=== PATIENT | male | born 2000 | race Caucasian/White ===

== ENCOUNTER 2022-11-20 13:18 | Emergency (ER) | payer SELFPAY ==
[2022-11-20 13:21] VITALS: BP 123/86; PULSE 52; RESP 16; TEMP 36.6; O2SAT 97; BMI 25.7
--- NOTE | 2022-11-20 13:26 | PC.NURSE ---
Pt states chest pain for a week. Worse with movement but states the pain is always there. States no known injury. NO cardiac history. States has SOB at times when he lays a certain way in bed. No SOB at time of assessment.
--- NOTE | 2022-11-20 13:38 | XR_ITS ---
[place] [id number] Patient Name: ROSETTE JACINTO MRN: [id number] date: 2000 Sex: M Assigned Patient Location: ER Current Patient Location: ED.MAIN Accession/Order Number: [id number] Exam Date: 11/20/2022 14:20 Report Date: 11/20/2022 14:54 At the request of: MARK MITCHELL Procedure: XR chest 2V EXAMINATION: XR chest 2V 11/20/2022 11:53 AM PDT, [id number]. HISTORY: CP TECHNIQUE: 2 views of the chest were acquired. COMPARISONS: Chest x-ray 11/16/2021. FINDINGS: Lines/tubes/other: None. Heart and mediastinum: Within normal limits. Bones: No acute osseous abnormality. Lungs: Clear. Pleura: No pleural effusion or pneumothorax. Other: No pneumoperitoneum. XR/XR chest 2V IMPRESSION: Normal radiographs of the chest. Electronically authenticated by: LISA GRAHAM Date: 11/20/2022 14:54
--- NOTE | 2022-11-20 13:39 | ED_ITS ---
Documented by User: Liliana Pineda 11/20/22 15:17 HPI - Chest Pain General Chief Complaint: Chest Pain Stated Complaint: CHEST PAIN Time Seen by Provider: 11/20/22 13:35 Source: patient Mode of arrival: walk-in Limitations: no limitations History of Present Illness HPI narrative: 22 year old male presents to the ED for chest pain. Onset was one week ago. It is on the left side of his chest and radiates under his left arm to his side. The pain is worse with movement, palpation, inspiration. Denies fever, chills, cough, dizziness, injury. States he feels short of breath due to the pain. MD complaint: Reports chest pain and chest discomfort Related Data Previous Rx's Medication Instructions Recorded naproxen 500 mg tablet (Naprosyn) 500 mg PO Q12H PRN pain #14 tabs 11/20/22 Allergies Allergy/AdvReac Type Severity Reaction Status Date / Time cephalexin Allergy Severe Difficulty Verified 11/20/22 13:23 Breathing Review of Systems ROS Constitutional Denies: fever or chills Ears, nose, mouth, and throat Denies: throat pain or neck pain Cardiovascular Reports: chest pain; Denies: palpitations, edema, lightheadedness or shortness of breath with exertion Respiratory Reports: shortness of breath; Denies: cough or wheezing Gastrointestinal Denies: abdominal pain Musculoskeletal Denies: back pain Integumentary/Breast Denies: rash Neurological Denies: headache or dizziness Exam Constitutional Vital Signs, click to edit/add: Last Vital Signs Temp 97.8 F 11/20/22 13:21 Pulse 52 L 11/20/22 13:21 Resp 16 11/20/22 13:21 BP 123/86 11/20/22 13:21 Pulse Ox 97 11/20/22 13:21 O2 Del Method Room Air 11/20/22 13:21 Common normals: no apparent distress and oriented x3 General appearance: cooperative; not ill appearing Eye Common normals: conjunctivae normal and no scleral icterus Neck & C-Spine Common normals: supple Chest Chest: symmetrical chest wall rise and tenderness (Left anterior and lateral) Respiratory Common normals: normal respiratory effort Effort & inspection: symmetric chest movement Auscultation: clear to auscultation bilaterally Cardio Common normals: no JVD, regular rate and regular rhythm Back & Pelvis Common normals: thoracic and lumbar spine normal to inspection Neuro Common normals: oriented x3 Sensorium/orientation: awake and alert Course Vital Signs Vital signs: Vital Signs Temperature 97.8 F 11/20/22 13:21 Pulse Rate 52 L 11/20/22 13:21 Respiratory Rate 16 11/20/22 13:21 Blood Pressure 123/86 11/20/22 13:21 Pulse Oximetry 97 11/20/22 13:21 Oxygen Delivery Method Room Air 11/20/22 13:21 Temperature 97.8 F 11/20/22 13:21 Pulse Rate 52 L 11/20/22 13:21 Respiratory Rate 16 11/20/22 13:21 Blood Pressure 123/86 11/20/22 13:21 Pulse Oximetry 97 11/20/22 13:21 Oxygen Delivery Method Room Air 11/20/22 13:21 MDM - Chest Pain MDM Narrative Medical decision making narrative: Chest x-ray was negative for acute findings. EKG was unremarkable. The patient's pain is likely musculoskeletal due to the presentation. A prescription was provided for naprosyn. Follow up with pcp for a recheck, further evaluation and treatment. Return precautions were discussed. Medical Records Data Attestation: I reviewed the patient's medical records. Imaging Data Chest x-ray: Radiologist's impression: Procedure: XR chest 2V EXAMINATION: XR chest 2V 11/20/2022 11:53 AM PDT, [id number]. HISTORY: CP TECHNIQUE: 2 views of the chest were acquired. COMPARISONS: Chest x-ray 11/16/2021. FINDINGS: Lines/tubes/other: None. Heart and mediastinum: Within normal limits. Bones: No acute osseous abnormality. Lungs: Clear. Pleura: No pleural effusion or pneumothorax. Other: No pneumoperitoneum. XR/XR chest 2V IMPRESSION: Normal radiographs of the chest. Electronically authenticated by: LISA GRAHAM Date: 11/20/2022 14:54 ECG Data Attestation: ?I have reviewed the pertinent ECG results. (EKG was reviewed by the attending physician. It showed sinus rhythm at a rate of 50 bpm. NE interval 122 ms. QTc 443 ms.) Interpretation: Measurements Intervals [place] Rate: 50 P: 56 NE: 122 QRS: 73 QRSD: 98 T: 52 QT: 470 QTc: 443 Interpretive Statements 1100 Sinus rhythm 1970 with occasional ectopic premature complexes 9140 abnormal rhythm ECG No previous ECG available for comparison Discharge Plan Discharge Chief Complaint: Chest Pain Clinical Impression: Atypical chest pain Patient Disposition: Home, Self-Care Time of Disposition Decision: 15:08 Condition: Good Mode of Transportation: Private Vehicle Prescriptions / Home Meds: New naproxen [Naprosyn] 500 mg tablet 500 mg PO Q12H PRN (Reason: pain) Qty: 14 0RF Instructions: Chest Pain (ED), Chest Wall Pain (ED) Stand Alone Forms: Portal Instructions Referrals: Physician,Non-Staff, [Primary Care Provider] - 1 week Discharge Date/Time: 11/20/22 15:15 Documented by User: Jennifer Miranda MD 11/20/22 17:01 HPI - Chest Pain General Chief Complaint: Chest Pain Stated Complaint: CHEST PAIN Time Seen by Provider: 11/20/22 13:35 Related Data Previous Rx's Medication Instructions Recorded naproxen 500 mg tablet (Naprosyn) 500 mg PO Q12H PRN pain #14 tabs 11/20/22 Allergies Allergy/AdvReac Type Severity Reaction Status Date / Time cephalexin Allergy Severe Difficulty Verified 11/20/22 13:23 Breathing Exam Constitutional Vital Signs, click to edit/add: Last Vital Signs Temp 97.8 F 11/20/22 13:21 Pulse 52 L 11/20/22 13:21 Resp 16 11/20/22 13:21 BP 123/86 11/20/22 13:21 Pulse Ox 97 11/20/22 13:21 O2 Del Method Room Air 11/20/22 13:21 Course Vital Signs Vital signs: Vital Signs Temperature 97.8 F 11/20/22 13:21 Pulse Rate 52 L 11/20/22 13:21 Respiratory Rate 16 11/20/22 13:21 Blood Pressure 123/86 11/20/22 13:21 Pulse Oximetry 97 11/20/22 13:21 Oxygen Delivery Method Room Air 11/20/22 13:21 Temperature 97.8 F 11/20/22 13:21 Pulse Rate 52 L 11/20/22 13:21 Respiratory Rate 16 11/20/22 13:21 Blood Pressure 123/86 11/20/22 13:21 Pulse Oximetry 97 11/20/22 13:21 Oxygen Delivery Method Room Air 11/20/22 13:21 MDM - Chest Pain MDM Narrative Medical decision making narrative: Chest x-ray was negative for acute findings. EKG was unremarkable. The patient's pain is likely musculoskeletal due to the presentation. A prescription was provided for naprosyn. Follow up with pcp for a recheck, further evaluation and treatment. Return precautions were discussed. Attending physician attestation I have reviewed the mid-level documentation, agree with the documentation, medical decision making and treatment plan as outlined by the mid-level provider. Discharge Plan Discharge Chief Complaint: Chest Pain Clinical Impression: Atypical chest pain Patient Disposition: Home, Self-Care Time of Disposition Decision: 15:08 Condition: Good Mode of Transportation: Private Vehicle Prescriptions / Home Meds: New naproxen [Naprosyn] 500 mg tablet 500 mg PO Q12H PRN (Reason: pain) Qty: 14 0RF Instructions: Chest Pain (ED), Chest Wall Pain (ED) Stand Alone Forms: Portal Instructions Referrals: Physician,Non-Staff, MD [Primary Care Provider] - 1 week Discharge Date/Time: 11/20/22 15:15
--- NOTE | 2022-11-20 13:43 | ECG_ITS ---
The [facility] Test Date: 2022-11-20 Pat Name: ROSETTE JACINTO Department: Room: - Gender: Male Sales Manager: : 2000 Requested By: Order Number: [id number] Reading MD: MALIK GONZALES Measurements Intervals [place] Rate: 50 P: 56 [place]: 122 QRS: 73 QRSD: 98 T: 52 QT: 470 QTc: 443 Interpretive Statements 1100 Sinus bradycardia 1969 with occasional ectopic premature complexes 9140 abnormal rhythm ECG No previous ECG available for comparison Electronically Signed On 11-21-2022 7:15:44 EDT by MALIK GONZALES
[2022-11-20] MEDS: NAPROXEN 250 MG TABLET 500 MG PO (14:43)
== END 2022-11-20 15:15 | disposition home or self-care (01) ==
PROVIDERS: Emergency Provider Emergency Medicine
DX: R07.89 Other chest pain (principal)
CPT/HCPCS: 71046; 93005; 99284

== ENCOUNTER 2023-02-18 09:57 | Emergency (ER) | payer SELFPAY ==
[2023-02-18 10:03] VITALS: BP 98/61; PULSE 69; RESP 16; TEMP 36.8; O2SAT 97; BMI 24.2
--- NOTE | 2023-02-18 10:10 | XR_ITS ---
The [address] [address] Patient Name: ROSETTE JACINTO MRN: [id number] date: 2000 Sex: M Assigned Patient Location: ER Current Patient Location: ED.MAIN Accession/Order Number: [id number] Exam Date: 02/18/2023 10:18 Report Date: 02/18/2023 11:08 At the request of: BANDAR CASTRO Procedure: XR ribs LT min 3V w CXR1V EXAM: XR ribs LT min 3V w CXR1V INDICATION: fall. COMPARISON: None. TECHNIQUE: Left rib series with frontal view of the chest FINDINGS: No acute displaced rib fracture identified. No osseous lytic or blastic lesion. Normal cardiomediastinal contours. Clear lungs. No pleural effusion or pneumothorax. XR/XR ribs LT min 3V w CXR1V IMPRESSION: 1. Normal left rib series. 2. No acute cardiopulmonary process. Electronically authenticated by: KATHLEEN CONROY Date: 02/18/2023 11:08
--- NOTE | 2023-02-18 10:16 | ED.GENADUL1 ---
HPI - General Adult General Chief complaint: Chest Pain Stated complaint: FALL/UPPER EXTREMITY INJURY Time Seen by Provider: 02/18/23 10:10 Source: family History of Present Illness HPI narrative: Patient is a 22-year-old male who is presenting to the Emergency Room with chief complaint of left-sided rib pain after patient had tripped and fallen and hit the left side of his ribs against a metal object. X-rays were ordered for patient's left side of his ribs and chest x-ray. I heard the patient information from Franklin ZAMORA, triage nurse. I was never able to see the patient secondary to urine volume in critical patients. Patient left without being seen or evaluated by myself. Related Data Previous Rx's Medication Instructions Recorded naproxen 500 mg tablet (Naprosyn) 500 mg PO Q12H PRN pain #14 tabs 11/20/22 Allergies Allergy/AdvReac Type Severity Reaction Status Date / Time cephalexin Allergy Severe Difficulty Verified 11/20/22 13:23 Breathing PFSH PFSH Social History Smoking status: Heavy tobacco smoker Exam Constitutional Vital Signs, click to edit/add: Last Vital Signs Temp 98.2 F 02/18/23 10:03 Pulse 69 02/18/23 10:03 Resp 16 02/18/23 10:03 BP 98/61 02/18/23 10:03 Pulse Ox 97 02/18/23 10:03 O2 Del Method Room Air 02/18/23 10:03 Course Vital Signs Vital signs: Vital Signs Temperature 98.2 F 02/18/23 10:03 Pulse Rate 69 02/18/23 10:03 Respiratory Rate 16 02/18/23 10:03 Blood Pressure 98/61 02/18/23 10:03 Pulse Oximetry 97 02/18/23 10:03 Oxygen Delivery Method Room Air 02/18/23 10:03 Temperature 98.2 F 02/18/23 10:03 Pulse Rate 69 02/18/23 10:03 Respiratory Rate 16 02/18/23 10:03 Blood Pressure 98/61 02/18/23 10:03 Pulse Oximetry 97 02/18/23 10:03 Oxygen Delivery Method Room Air 02/18/23 10:03 Discharge Plan Discharge Patient Disposition: Left Without Being Seen Discharge Date/Time: 02/18/23 11:30
[2023-02-18] MEDS: IBUPROFEN 400 MG TABLET 800 MG PO (10:29)
--- NOTE | 2023-02-18 18:06 | RESP.RT ---
done per nursing
== END 2023-02-18 11:30 | disposition left against medical advice (07) ==
PROVIDERS: Emergency Provider Emergency Medicine
DX: R07.81 Pleurodynia (principal); Z53.21 Procedure and treatment not carried out due to patient leaving prior to being seen by health care provider; F17.210 Nicotine dependence, cigarettes, uncomplicated
CPT/HCPCS: 71101; 94667; 99283

== ENCOUNTER 2023-08-21 11:43 | Emergency (ER) | payer SELFPAY ==
[2023-08-21 11:54] VITALS: BP 110/66; PULSE 66; TEMP 36.7; O2SAT 98; BMI 27.3
--- NOTE | 2023-08-21 12:01 | ED.GENADUL1 ---
HPI HPI - General Adult General Chief complaint: Headache Stated complaint: HEADACHE Time Seen by Provider: 08/21/23 11:45 Source: patient Mode of arrival: walk-in Limitations: no limitations History of Present Illness HPI narrative: 23-year-old male presents for headache. He states it started last night and there was no injury or unusual activity. He is pointing to the right temporal area and just below it. No dental pain sore throat fever or cough. No weakness or numbness. He does not get a lot of headaches at all. The pain is continuous and moderate. He took acetaminophen but it did not seem to help. Related Data Previous Rx's ?Medication ?Instructions ?Recorded nqdmhovocu-ionfttstirzks-ilwtqhdf 1 cap PO Q6H PRN pain 5 days #20 08/21/23 50 mg-300 mg-40 mg capsule caps (Fioricet) Allergies Allergy/AdvReac Type Severity Reaction Status Date / Time cephalexin Allergy Severe Difficulty Verified 11/20/22 13:23 Breathing Opioid HPI Opioid Management Most Recent Opioid Data: Last Pain Scale 10 02/18/23 10:29 Review of Systems ROS Narrative A ten point review of systems is negative except as noted above. PFSH PFSH Social History Smoking status: Heavy tobacco smoker Exam Narrative Exam Narrative: Nurses note and vital signs reviewed and patient is not hypoxic. General: The patient appears well and in no apparent distress. Patient is resting comfortably on cart. Skin: Warm, dry, no pallor noted. There is no rash noted. Head: Normocephalic, atraumatic, neck supple, no nuchal rigidity Eye: Normal conjunctiva, no drainage, EOMI. PERRL Ears, Nose, Mouth, and Throat: oral mucosa is moist. Nares patent. Mouth without vesicles. No dental caries noted Cardiovascular: Regular Rate and Rhythm Respiratory: Patient is in no distress, no accessory muscle use, lungs are clear to auscultation, no wheezing, rales or rhonchi Back: non-tender GI: Soft and nontender Musculoskeletal: The patient has no evidence of calf tenderness, no pitting edema, symmetrical pulses noted bilaterally Neurological: Awake and alert, upper and lower extremity strength intact Psychiatric: Cooperative Constitutional Vital Signs, click to edit/add: Last Vital Signs Temp 98.0 F 08/21/23 11:54 Pulse 66 08/21/23 11:54 Resp 18 08/21/23 11:54 BP 110/66 08/21/23 11:54 Pulse Ox 98 08/21/23 11:54 O2 Del Method Room Air 08/21/23 11:54 Course Vital Signs Vital signs: Vital Signs Temperature 98.0 F 08/21/23 11:54 Pulse Rate 66 08/21/23 11:54 Respiratory Rate 18 08/21/23 11:54 Blood Pressure 110/66 08/21/23 11:54 Pulse Oximetry 98 08/21/23 11:54 Oxygen Delivery Method Room Air 08/21/23 11:54 Temperature 98.0 F 08/21/23 11:54 Pulse Rate 66 08/21/23 11:54 Respiratory Rate 18 08/21/23 11:54 Blood Pressure 110/66 08/21/23 11:54 Pulse Oximetry 98 08/21/23 11:54 Oxygen Delivery Method Room Air 08/21/23 11:54 Medical Decision Making MDM Narrative Medical decision making narrative: CT brain is negative. He was given IM Toradol and prescribed Fioricet. Cause of his headache is uncertain. I have no clinical suspicion of meningitis. Treatment diagnosis and follow-up were discussed with the patient. Differential Diagnosis Differential Diagnosis: Intracranial hemorrhage, meningitis, tension headache Imaging Data CT scan - head: Radiologist's impression: ITS Impressions Head CT 08/21/23 12:09 IMPRESSION: 1. Normal examination. Electronically authenticated by: ADRIANA CORTEZ Date: 08/21/2023 12:26 Discharge Plan Discharge Stand Alone Forms: Portal Instructions Chief Complaint: Headache Clinical Impression: Headache Patient Disposition: Home, Self-Care Time of Disposition Decision: 12:36 Condition: Good Mode of Transportation: Private Vehicle Prescriptions / Home Meds: New zdbdsfbets-hvkgtfqnovrwa-vocy [Fioricet] 50-300-40 mg capsule 1 cap PO Q6H PRN (Reason: pain) 5 Days Qty: 20 0RF Print Language: Belarusian Instructions: Acute Headache (ED) Referrals: Physician,Non-Staff, MD [Primary Care Provider] - 1 week
--- NOTE | 2023-08-21 12:09 | CT_ITS ---
The [address] [address] Patient Name: ROSETTE JACINTO MRN: [id number] date: 2000 Sex: M Assigned Patient Location: ER Current Patient Location: ED.MAIN Accession/Order Number: [id number] Exam Date: 08/21/2023 12:06 Report Date: 08/21/2023 12:26 At the request of: LEO CARTAGENA Procedure: CT head/brain wo con EXAMINATION: CT head/brain wo con HISTORY: Right-sided atraumatic headache COMPARISON: No relevant comparison available. TECHNIQUE: Axial CT images were obtained without IV contrast. Dose reduction techniques were achieved by using automated exposure control and/or adjustment of mA and/or kV according to patient size and/or use of iterative reconstruction technique. FINDINGS: BRAIN: No edema, hemorrhage, mass, acute infarction, or inappropriate atrophy. CSF SPACES: No hydrocephalus, subarachnoid hemorrhage, or mass. Appropriate for age. SKULL: No fracture, mass, or other significant visible lesion. SINUSES: No significant mucosal thickening or fluid on the limited views. ORBITS: No appreciable abnormality on the limited views. OTHER: Negative CT/CT head/brain wo con IMPRESSION: 1. Normal examination. Electronically authenticated by: ADRIANA CORTEZ Date: 08/21/2023 12:26
--- OUTSIDE RECORDS SUMMARY | 2023-08-21 12:18 | XMS_ITS | CCD ---
Author Organization [facility] Care Team Providers Care Field Sales Associate Name Role Phone CURLY ., ELIZABETH Admitting Unavailable ELIZABETH HURT Attending Unavailable DR ADRIANA CORTEZ Consulting Unavailable REQUEST, NONE LISTED Primary Care Unavaila ELIZABETH White Consulting Unavailable KELLEN PASCUAL Admitting Unavailable KELLEN PASCUAL Consulting Unavailable KELLEN PASCUAL Attending Unavailable REQUEST, NONE LISTED Primary Care Unavaila ble Unavailable Unavailable Unavailable Allergies Allergy Classification Reported Allergen(s) Allergy Type Date of Onset Reaction(s) Facility (2 sources) Cephalexin; Translations: [Cephalexin] Drug Allergy 5 Difficulty Breathing [facility] Repository Medications Current Medications Medication Drug Class(es) Dates Sig (Normalized) Sig (Original) Albuterol Sulfate (1 source) beta2-Adrenergic Agonist Start: 12-20-2018 Albuterol Sulfate Active 2 PUFF Inhalation As Directed December 20, 2018 8:10am ondansetron 4 mg disintegrating oral tablet (1 source) Serotonin-3 Receptor Antagonist Start: 12-20-2018 Ondansetron Active 4 MG Oral every 6 to 8 hours 10 December 20, 2018 8:34am Problems Active Problems Problem Classification Problem Date Documented Da te Episodic/Chronic Asthma (1 source) Unspecified asthma, uncomplicated; Translations: [UNSPECIFIED ASTHMA UNCOMPLICATED] Onset: 11-17-2021 Chronic Cardiac dysrhythmias (1 source) Palpitations; Translations: [Fluttering sensation of heart] Episodic Disorders of teeth and jaw (1 source) Toothache; Translations: [Dental neglect] Episodic Fluid and electrolyte disorders (1 source) Hypokalemia; Translations: [Diuretic-induced hypokalemia] Episodic Headache; including migraine (1 source) Headache; Translations: [Daily headache] Episodic Nausea and vomiting (2 sources) Nausea and vomiting; Translations: [Vomiting] Episodic Pneumonia (except that caused by tuberculosis or sexually transmitted disease) (1 source) Pneumonia; Translations: [Drug-induced pneumonitis] Episodic Spondylosis; intervertebral disc disorders; other back problems (4 sources) Dorsalgia, unspecified; Translations: [DORSALGIA UNSPECIFIED] Onset: 05-22-2022 Episodic Sprains and strains (1 source) Thoracic back sprain; Translations: [Sprain of thorax] Episodic Substance-related disorders (2 sources) Cannabis abuse; Translations: [Nicotine dependence, other tobacco product, uncomplicated] Onset: 11-17-2021 Chronic Superficial injury; contusion (1 source) Contusion of thumb; Translations: [Contusion of thumb] Episodic Viral infection (2 sources) Acute viral disease; Translations: [Viral disease] Episodic Past or Other Problems Problem Classification Problem Date Documented Da te Episodic/Chronic Nonspecific chest pain (4 sources) Other chest pain; Translations: [Chest pain, unspecified] Onset: 11-16-2021 Episodic Other upper respiratory infections (3 sources) Pharyngitis; Translations: [Upper respiratory infection] Onset: 11-17-2021 Episodic Results Test Name Value Interpretation Reference Range Facil ity XR CHEST 2 Von 11-16-2021 XR CHEST 2 V EXAMINATION: XR CHES T 2 V HISTORY: COUGH ; acute left side chest pain COMPARISON: XR chest 01/13/2021 FINDINGS: LUNGS: No significant pulmonary parenchymal abnormalities. VASCULATURE: No increased pulmonary vasculature. PLEURA: No pneumothorax, effusion, or pleural thickening. CARDIAC: No cardiomegaly or cardiac silhouette abnormality. MEDIASTINUM: No visible mass or adenopathy. BONES: No fracture or visible bone lesion. OTHER: Negative. IMPRESSION: 1. No acute cardiopulmonary process. Stable chest. Electronically authenticated by: ADRIANA CORTEZ Date: 2021-11-16 13:05 Normal [facility] Encounters Encounter Date Encounter Type Care Provider Facility Start: 05-22-2022 End: 05-22-2022 ambulatory KELLEN LAMBERT . Facility:[facility] Start: 11-16-2021 End: 11-16-2021 ambulatory ELIZABETH RAWLS . Facility:[facility] Payers Date Payer Category Payer Unknown [id number] 2000 Unknown [id number] 1961 Private Health Insurance [id number] 1961 Self-pay [id number] Unknown Self Pay [id number] Unknown Self Pay [id number] Social History Date Type Detail Facility Tobacco smoking stat [facility] Unknown if ever smoked [facility] Start: 2000 Sex Assigned At Male [facility] Goals Date Patient Goal Desired Activity /State Assessments No Assessments Information Available Summary Purpose Family History No Family History Records Found Advance Directives No Advanced Directives Records Found Additional Source Comments (unrecognized sect ion and content) No Status Records Found INFORMATION SOURCE (unrecogn ized section and content) DATE CREATED AUTHOR 05/24/2022 [facility] [facility] FOR RECORDS PERTAINING TO PATIENTS WHO ARE OR HAVE BEEN ENROLLED IN A CHEMICAL DEPENDENCY/SUBSTANCEABUSE PROGRAM, SOME INFORMATION MAY BE OMITTED. This clinical summary was aggregated from multiple sources. Caution should be exercised in using it in the provision of clinical care. This summary normalizes information from multiple sources, and as a consequence, information in this document may materially change the coding, format and clinical context of patient data. In addition, data may be omitted in some cases. CLINICAL DECISIONS SHOULD BE BASED ON THE PRIMARY CLINICAL RECORDS. [employer] [facility]. provides no warranty or guarantee of the accuracy or completeness of information in this document.
[2023-08-21] MEDS: KETOROLAC TROMETHAMINE 60 MG/2 ML VIAL IM (12:43)
== END 2023-08-21 12:50 | disposition home or self-care (01) ==
PROVIDERS: Emergency Provider Emergency Medicine
DX: R51.9 Headache, unspecified (principal)
CPT/HCPCS: 70450; 96372; 99284

== ENCOUNTER 2023-09-18 19:50 | Emergency (ER) | payer SELFPAY ==
[2023-09-18 19:52] VITALS: BP 134/82; PULSE 82; TEMP 36.9; O2SAT 97; BMI 24.0
--- OUTSIDE RECORDS SUMMARY | 2023-09-18 20:06 | XMS_ITS | CCD ---
Author Organization [facility] Care Team Providers Care Supervisor [employer] Name Role Phone CURLY ., ELIZABETH Admitting Unavailable CURLY ., ELIZABETH Attending Unavailable DR ADRIANA CORTEZ Consulting Unavailable REQUEST, NONE LISTED Primary Care Unavaila ble CURLY ., ELIZABETH Consulting Unavailable PETRA ., KLELEN Admitting Unavailable PETRA ., KELLEN Consulting Unavailable PETRA ., KELLEN Attending Unavailable REQUEST, NONE LISTED Primary Care Unavaila ble NO PCP, NO PCP Primary Care Unavailable DOTTIE CALVERT Attending Unavailable NO PCP, NO PCP Primary Care Unavailable DOTTIE CALVERT Attending Unavailable DOTTIE CALVERT Attending Unavailable DOTTIE CALVERT Referring Unavailable NO PCP, NO PCP Primary Care Unavailable Unavailable Unavailable Unavailable Allergies Allergy Classification Reported Allergen(s) Allergy Type Date of Onset Reaction(s) Facility (3 sources) Cephalexin; Translations: [Cephalexin] Drug Allergy 5 Difficulty Breathing [facility] Repository Medications Current Medications Medication Drug Class(es) [...] Spondylosis; intervertebral disc disorders; other back problems (6 sources) Dorsalgia, unspecified; Translations: [Backache] Onset: 05-22-2022 Episodic Sprains and strains (2 sources) Thoracic back sprain; Translations: [Strain of muscle, fascia and tendon of lower back, initial encounter] Onset: 08-30-2023 Episodic Substance-related disorders (2 sources) Cannabis abuse; [...] Value Interpretation Reference Range Facil ity XR SPINE LUMBAR 2 OR 3 VWSon 09-04-2023 XR SPINE LUMBAR 2 OR 3 VWS XR SPINE LUMBAR 2 OR 3 VWS CLINICAL INFORMATION: Low back pain TECHNIQUE: XR SPINE LUMBAR 2 OR 3 VWS 2 views of the lumbar spine were obtained. There is no lumbar malalignment or compression. Endplates appear intact. Disc spaces preserved. No fracture. IMPRESSION: Negative exam. Finalized by Kenny Del Toro MD on 09/04/2023 10:33 PM Normal [facility] URN MACROSCOPIC NURon 2023 BILIRUBIN PEDRO Negative Normal NEG [facility] Comment on above: Performed By: #### N UM #### [facility] ([id number]) [address] [place] [address] [place] [address] BLOOD/HGB PEDRO Negative Normal NEG [facility] Comment on above: Performed By: #### N UM #### [facility] ([id number]) [address] [place] [address] [place] [address] GLUCOSE PEDRO Negative Normal NEG [facility] Comment on above: Performed By: #### N UM #### [facility] ([id number]) [address] [place] [address] [place] [address] KETONES PEDRO Negative Normal NEG [facility] Comment on above: Performed By: #### N UM #### [facility] ([id number]) [address] [place] [address] LEUKOCYTE ESTERASE PEDRO Negative Normal NEG [facility] Comment on above: Performed By: #### N UM #### [facility] ([id number]) [address] [place] [address] [place] [address] NITRITE PEDRO Negative Normal NEG [facility] Comment on above: Performed By: #### N UM #### [facility] ([id number]) [address] [place] [address] PH PEDRO 7.0 Normal 5.0-8.5 [facility] Comment on above: Performed By: #### N UM #### [facility] ([id number]) [address] [place] [address] [place] [address] PROTEIN PEDRO Negative Normal NEG [facility] Comment on above: Performed By: #### N UM #### [facility] ([id number]) [address] [place] [address] [place] [address] SPECIFIC GRAVITY PEDRO 1.020 Normal 1.003-1.035 [facility] Comment on above: Performed By: #### N UM #### [facility] ([id number]) [address] [place] [address] [place] [address] UROBILINOGEN PEDRO 0.2 eu/dL Normal <1.1 [facility] Comment on above: Performed By: #### N #### [facility] ([id number]) [address] [place] [address], [place] [address] XR CHEST 2 Von 11-16-2021 XR CHEST [...] by: ADRIANA CORTEZ Date: 2021-11-16 13:05 Normal [facility] Encounters Encounter Date Encounter Type Care Provider Facility Start: 09-04-2023 End: 09-05-2023 Emergency department patient visit DOTTIE CALVERT [facility] Start: 08-30-2023 End: 08-30-2023 Emergency department patient visit NO PCP NO PCP [facility] Start: 05-22-2022 End: 05-22-2022 ambulatory EKLLEN LAMBERT . Facility: Start: 11-16-2021 End: 11-16-2021 ambulatory ELIZABETH RAWLS . Facility: Payers Date Payer Category Payer Unknown [id number] 2.16.84 [id number] 2000 Unknown [id number] [id number] [id number] 1961 Private Health Insurance [id number] 1961 Self-pay [id number] Unknown Self Pay [id number] Unknown Self Pay [id number] Social History Date Type Detail Facility [facility] Start: 2000 Sex Assigned At Male F [facility] Goals Date Patient Goal Desired Activity /State Assessments No Assessments Information Available Summary Purpose Family History No Family History Records FoundNo Family History Records Found Advance Directives No Advanced Directives Records FoundNo Advanced Directives Records Found Additional Source Comments (unrecognized sect ion and content) No Status Records FoundNo Status Records Found INFORMATION SOURCE (unrecogn ized section and content) DATE CREATED AUTHOR 05/24/2022 [facility] DATE CREATED AUTHOR AUTHOR'S ORGANIZ ATION 09/05/2023 [facility] FOR RECORDS PERTAINING TO PATIENTS WHO ARE [...] BE BASED ON THE PRIMARY CLINICAL RECORDS. [employer]. provides no warranty or guarantee of the accuracy or completeness of information in this document.
--- NOTE | 2023-09-18 20:18 | ED.DENTAL1 ---
HPI - Dental/Oral General Chief complaint: Dental/Oral Stated complaint: Dental Pain Time Seen by Provider: 09/18/23 19:52 Source: patient Mode of arrival: walk-in Limitations: no limitations History of Present Illness HPI Narrative: This 23-year-old male presents for evaluation of dental pain. He has multiple decayed and decaying teeth specifically in the left lower mandibular area, today he is complaining about tooth #21, 20 and 19. He has been having pain in his mandible for some period of time but for the past 2 days it has become increasingly painful. He states he does not have insurance so he cannot get into see a dentist. I did suggest several dentist that take juan payments. He has not had any fever. He is not having any pooling of secretions or difficulty breathing or swallowing. He states he has been taking Tylenol and ibuprofen 800 without significant improvement. He did use some Orajel 2 weeks ago. Related Data Allergies Allergy/AdvReac Type Severity Reaction Status Date / Time cephalexin Allergy Severe Difficulty Verified 11/20/22 13:23 Breathing Review of Systems ROS Status of ROS 10 or more systems reviewed and unremarkable except as noted in history and below [facility] Social History Smoking status: Heavy tobacco smoker Exam Narrative Exam Narrative: Vital signs and Nursing Notes reviewed: Patient is afebrile with a normal pulse, normal blood pressure, he is not hypoxic with pulse ox of 97% on room air General: Thin, uncomfortable appearing male, he is holding the left side of his jaw and rocking back and forth on the stretcher, no respiratory distress, speech is clear HEENT: Normocephalic atraumatic, mucous membranes are moist and pink, eyes are clear, normal conjunctiva, there is gingival erythema and induration adjacent to tooth #19, 20 and 21 which are severely decayed with dental caries, no notable periapical abscesses noted. There is no sign of necrotizing gingivitis. There is no swelling of the tongue, uvula or pharyngeal soft tissues. Neck: Supple, no meningeal signs, no anterior or posterior cervical lymphadenopathy Chest: Lungs are clear to auscultation with good air entry, there is no wheezing rhonchi or rales appreciated no accessory muscle use, patient is speaking in complete sentences-no chest wall tenderness to palpation CVS: Regular rate and rhythm S1-S2, no murmurs rubs or gallops, pulses are brisk and equal bilaterally Extremities: Moving all extremities Skin: Normal in appearance without rash,pallor, petechiae or purpura Neuro: No focal deficits Constitutional Vital Signs, click to edit/add: Last Vital Signs Temp 98.5 F 09/18/23 19:52 Pulse 82 09/18/23 19:52 Resp 18 09/18/23 19:52 BP 134/82 09/18/23 19:52 Pulse Ox 97 09/18/23 19:52 O2 Del Method Room Air 09/18/23 19:52 Course Vital Signs Vital signs: Vital Signs Temperature 98.5 F 09/18/23 19:52 Pulse Rate 82 09/18/23 19:52 Respiratory Rate 18 09/18/23 19:52 Blood Pressure 134/82 09/18/23 19:52 Pulse Oximetry 97 09/18/23 19:52 Oxygen Delivery Method Room Air 09/18/23 19:52 Temperature 98.5 F 09/18/23 19:52 Pulse Rate 82 09/18/23 19:52 Respiratory Rate 18 09/18/23 19:52 Blood Pressure 134/82 09/18/23 19:52 Pulse Oximetry 97 09/18/23 19:52 Oxygen Delivery Method Room Air 09/18/23 19:52 MDM - Dental/Oral MDM Narrative Medical decision making narrative: This 23-year-old male with a history of periodontal disease presents for evaluation of left lower jaw pain where he has 3 decayed and decaying teeth #19, 20 and 21. There is local gingival erythema and edema adjacent to these teeth. Do not appreciate any periapical abscess or necrotizing gingivitis. He does not have a local dentist because he does not have insurance. I referred him to several dental offices that take juan payments in the [facility]. He was medicated emergency department with clindamycin as he is allergic to Keflex and he was given 2 [place] and a Zofran to take at home as needed for pain as well as dental analgesia. He will be discharged home with prescription for Tylenol with codeine and clindamycin. He was encouraged to follow-up closely with any dentist that will see him before his symptoms become worse. Discharge Plan Discharge Stand Alone Forms: Portal Instructions Chief Complaint: Dental/Oral Clinical Impression: Toothache, Dental caries, Periodontal disease Patient Disposition: Home, Self-Care Time of Disposition Decision: 20:16 Condition: Good Print Language: Latvian Instructions: Toothache (ED), Periodontal Disease (DC) Referrals: Physician,Non-Staff, MD [Primary Care Provider] - 1 week
[2023-09-18] MEDS: HYDROCODONE/ACET 5-325 MG TABLET 2 TAB PO (20:29)
[2023-09-18] MEDS: ONDANSETRON 4 MG RAPDIS TABLET SL (20:30)
[2023-09-18] MEDS: CLINDAMYCIN HCL 150 MG CAPSULE 300 MG PO (20:31)
[2023-09-18] MEDS: BENZOCAINE 30 ML, lidocaine HCL 15 ML MM (20:31)
== END 2023-09-18 20:38 | disposition home or self-care (01) ==
PROVIDERS: Emergency Provider Emergency Medicine
DX: K08.89 Other specified disorders of teeth and supporting structures (principal); K02.9 Dental caries, unspecified; K05.6 Periodontal disease, unspecified; F17.200 Nicotine dependence, unspecified, uncomplicated
CPT/HCPCS: 99283; Q0162

== ENCOUNTER 2023-09-21 17:40 | Emergency (ER) | payer SELFPAY ==
--- OUTSIDE RECORDS SUMMARY | 2023-09-21 17:48 | XMS_ITS | CCD ---
Author Organization [facility] Care Team Providers Care Inspector Line Name Role Phone CURLY ., ELIZABETH Admitting Unavailable CURLY ., ELIZABETH Attending Unavailable DR ADRIANA CORTEZ Consulting Unavailable REQUEST, NONE LISTED Primary Care Unavaila ble CURLY ., ELIZABETH Consulting Unavailable PETRA ., KELLEN Admitting Unavailable PETRA ., KELLEN Consulting Unavailable PETRA ., KELLEN Attending Unavailable REQUEST, NONE LISTED Primary Care Unavaila ble NO PCP, NO PCP Primary Care Unavailable DOTTIE CALVERT Attending Unavailable NO PCP, NO PCP Primary Care Unavailable DOTTIE CALVERT Attending Unavailable DOTTIE CALVERT Attending Unavailable DOTTIE CALVERT Referring Unavailable NO PCP, NO PCP Primary Care Unavailable NO PCP, NO PCP Primary Care Unavailable BARBARA CHURCH Attending Unavailable NO PCP, NO PCP Primary Care Unavailable DIANA HERNANDEZ Attending Unavailjeanine egan Unavailable Unavailable Unavailable Allergies Allergy Classification Reported Allergen(s) Allergy Type Date of Onset Reaction(s) Facility (3 sources) Cephalexin; Translations: [Cephalexin] Drug Allergy 5 Difficulty Breathing [facility] Repository Medications Current Medications Medication [...] heart] Episodic Disorders of teeth and jaw (4 sources) Toothache; Translations: [Dental caries, unspecified] Onset: 09-17-2023 Episodic Fluid and electrolyte disorders (1 source) Hypokalemia; Translations: [Diuretic-induced hypokalemia] Episodic Headache; including migraine (1 source) Headache; Translations: [Daily headache] Episodic Nausea and vomiting (2 sources) Nausea and vomiting; Translations: [Vomiting] Episodic Other upper respiratory disease (1 source) Pain in throat Onset: 09-20-2023 Episodic Other upper respiratory infections (4 sources) Pharyngitis; Translations: [Upper respiratory infection] Onset: 11-17-2021 Episodic Pneumonia (except that caused by tuberculosis [...] Translations: [Chest pain, unspecified] Onset: 11-16-2021 Episodic Results Test Name Value Interpretation Reference Range Facil ity STREP PCR THROATon S. pyogenes DNA ANDIE+probe Nom (Unsp spec) STREP PCR THROAT Negative (qualifier value) Streptococcus Group A NOT detected by nucleic acid amplification. Normal [facility] Comment on above: Performed By: #### 4 9610-9 #### [facility] ([id number]) [address] [place] [address], [address] [place] [address] RAPID STREP SCR NURSINGon S. pyogenes Ag EIA Ql (Throat) Negative Normal NEG [facility] Comment on above: Performed By: #### 6 556-5 #### [facility] ([id number]) [address] [place] [address] XR SPINE LUMBAR 2 OR 3 VWSon [...] Toro MD on 09/04/2023 10:33 PM Normal [facility] URN MACROSCOPIC NURon 2023 BILIRUBIN PEDRO Negative Normal NEG [facility] Comment on above: Performed By: #### N UM #### [facility] ([id number]) [address] [place] [address] BLOOD/HGB PEDRO Negative Normal NEG [facility] Comment on above: Performed By: #### N UM #### [facility] ([id number]) [address] [place] [address] GLUCOSE PEDRO Negative Normal NEG [facility] Comment on above: Performed By: #### N UM #### [facility] ([id number]) [address] [place] [address] KETONES PEDRO Negative Normal NEG [facility] Comment on above: Performed By: #### N UM #### [facility] ([id number]) [address] [place] [address] LEUKOCYTE ESTERASE PEDRO Negative Normal NEG [facility] Comment on above: Performed By: #### N UM #### [facility] ([id number]) [address] [place] [address] NITRITE PEDRO Negative Normal NEG [facility] Comment on above: Performed By: #### N UM #### [facility] ([id number]) [address] [place] [address] PH PEDRO 7.0 Normal 5.0-8.5 [facility] Comment on above: Performed By: #### N UM #### [facility] ([id number]) [address] [place] [address] PROTEIN PEDRO Negative Normal NEG [facility] Comment on above: Performed By: #### N UM #### [facility] ([id number]) [address] [place] [address] SPECIFIC GRAVITY PEDRO 1.020 Normal 1.003-1.035 [facility] Comment on above: Performed By: #### N UM #### [facility] ([id number]) [address] [place] [address] UROBILINOGEN PEDRO 0.2 eu/dL Normal <1.1 [facility] Comment on above: Performed By: #### N UM #### [facility] ([id number]) [address] [place] [address] XR CHEST 2 Von 11-16-2021 XR CHEST [...] by: ADRIANA CORTEZ Date: 2021-11-16 13:05 Normal [facility] Encounters Encounter Date Encounter Type Care Provider Facility Start: 09-20-2023 End: 09-20-2023 Emergency department patient visit NO PCP NO PCP [facility] Start: 09-17-2023 End: 09-17-2023 Emergency department patient visit NO PCP NO PCP [facility] Start: 09-04-2023 End: 09-05-2023 Emergency department patient visit DOTTIE CALVERT [facility] Start: 08-30-2023 End: 08-30-2023 Emergency department patient visit NO PCP NO PCP [facility] Start: 05-22-2022 End: 05-22-2022 ambulatory KELLEN LAMBERT . Facility: Start: 11-16-2021 End: 11-16-2021 ambulatory ELIZABETH RALWS . Facility: Payers Date Payer Category Payer Unknown [id number] [id number] [id number] 2000 Unknown [id number] [id number] [id number] 1961 Private Health Insurance [id number] 1961 Self-pay [id number] Unknown Self Pay [id number] Unknown Self Pay [id number] Social History Date Type Detail Facility Tobacco smoking stat [facility] Unknown if ever smoked [facility] Start: 2000 Sex Assigned At Male F [facility] Goals Date Patient Goal Desired Activity [...] [facility] DATE CREATED AUTHOR 'S MAYURIZ ATCANDIS 09/21/2023 [facility] FOR RECORDS PERTAINING TO PATIENTS WHO [...] BE BASED ON THE PRIMARY CLINICAL RECORDS. [facility]. provides no warranty or guarantee of the accuracy or completeness of information in this document.
== END 2023-09-21 18:17 | disposition left against medical advice (07) ==
LOC: ER 17:46
PROVIDERS: Emergency Provider Emergency Medicine
DX: Z53.21 Procedure and treatment not carried out due to patient leaving prior to being seen by health care provider (principal)

== ENCOUNTER 2023-09-23 11:29 | Emergency (ER) | payer SELFPAY ==
[2023-09-23 11:40] VITALS: BP 132/77; PULSE 72; TEMP 36.9; O2SAT 98; BMI 24.0
--- OUTSIDE RECORDS SUMMARY | 2023-09-23 11:40 | XMS_ITS | CCD ---
Author Organization [facility] Care Team Providers Care Manager Financial Reporting Name Role Phone CURLY ., ELIZABETH Admitting [...] [Cephalexin] Drug Allergy 5 Difficulty Breathing [facility] Repository Medications Current Medications Medication Drug Class(es) [...] NOT detected by nucleic acid amplification. Normal [facility] Comment on above: Performed By: #### 4 9610-9 #### [facility] ([id number]) [address] [place] [address], [address] [place] [address] RAPID STREP SCR NURSINGon S. pyogenes Ag EIA Ql (Throat) Negative Normal NEG [facility] Comment on above: Performed By: #### 6 556-5 #### [facility] ([id number]) [address] [place] [address] XR SPINE LUMBAR 2 OR 3 VWSon [...] Toro MD on 09/04/2023 10:33 PM Normal [facility] URN MACROSCOPIC NURon 2023 BILIRUBIN PEDRO Negative Normal NEG [facility] Comment on above: Performed By: #### N UM #### [facility] ([id number]) [address] [place] [address] BLOOD/HGB PEDRO Negative Normal NEG [facility] Comment on above: Performed By: #### N UM #### [facility] ([id number]) [address] [place] [address] GLUCOSE PEDRO Negative Normal NEG [facility] Comment on above: Performed By: #### N UM #### [facility] ([id number]) [address] [place] [address] KETONES PEDRO Negative Normal NEG [facility] Comment on above: Performed By: #### N UM #### [facility] ([id number]) [address] [place] [address] LEUKOCYTE ESTERASE PEDRO Negative Normal NEG [facility] Comment on above: Performed By: #### N UM #### [facility] ([id number]) [address] [place] [address] NITRITE PEDRO Negative Normal NEG [facility] Comment on above: Performed By: #### N UM #### [facility] ([id number]) [address] [place] [address] PH PEDRO 7.0 Normal 5.0-8.5 [facility] Comment on above: Performed By: #### N UM #### [facility] ([id number]) [address] [place] [address] PROTEIN PEDRO Negative Normal NEG [facility] Comment on above: Performed By: #### N UM #### [facility] ([id number]) [address] [place] [address] SPECIFIC GRAVITY PEDRO 1.020 Normal 1.003-1.035 [facility] Comment on above: Performed By: #### N UM #### [facility] ([id number]) [address] [place] [address] UROBILINOGEN EPDRO 0.2 eu/dL Normal <1.1 [facility] Comment on above: Performed By: #### N UM #### [facility] ([id number]) [address] [place] [address] XR CHEST 2 Von 11-16-2021 XR CHEST [...] by: ADRIANA CORTEZ Date: 2021-11-16 13:05 Normal [facility] Encounters Encounter Date Encounter Type Care Provider Facility Start: 09-20-2023 End: 09-20-2023 Emergency department patient visit NO PCP NO PCP [facility] Start: 09-17-2023 End: 09-17-2023 Emergency department patient visit NO PCP NO PCP [facility] Start: 09-04-2023 End: 09-05-2023 Emergency department patient visit DOTTIE CALVERT [facility] Start: 08-30-2023 End: 08-30-2023 Emergency department patient visit NO PCP NO PCP [facility] Start: 05-22-2022 End: 05-22-2022 ambulatory KELLEN LAMBERT . Facility: Start: 11-16-2021 End: 11-16-2021 ambulatory ELIZABETH RAWLS . Facility: Payers Date Payer Category Payer Unknown [id number] 2.16.84 [id number] 2000 Unknown [id number] 2.16.84 [id number] 1961 Private Health Insurance [id number] 1961 Self-pay [id number] Unknown Self Pay [id number] Unknown Self Pay [id number] Social History Date Type Detail Facility Tobacco smoking stat [facility] Unknown if ever smoked [facility] Start: 2000 Sex Assigned At Male F [facility] Goals Date Patient Goal Desired [...] DATE CREATED AUTHOR 'S MAYURIZ ATCANDIS 09/21/2023 [facility] FOR RECORDS PERTAINING TO PATIENTS WHO ARE [...] BE BASED ON THE PRIMARY CLINICAL RECORDS. [facility]. provides no warranty or guarantee of the accuracy or completeness of information in this document.
--- NOTE | 2023-09-23 12:31 | ED.GENADUL1 ---
HPI HPI - General Adult General Chief complaint: Ear Stated complaint: LEFT EAR PAIN Time Seen by Provider: 09/23/23 12:26 Source: patient Mode of arrival: walk-in Limitations: no limitations History of Present Illness HPI narrative: 23-year-old male presents to the emergency department for left ear pain. He is worried about an infection. It started within the last day or 2. He also notes that he has bad teeth in his left lower jaw and has a dental appointment soon. The pain is moderate and continuous. No drainage from his ear and no trauma. Related Data Home Medications ?Medication ?Instructions ?Recorded ?Confirmed clindamycin HCl 150 mg capsule 300 mg PO Q8H 09/23/23 09/23/23 Previous Rx's ?Medication ?Instructions ?Recorded acetaminophen 300 mg-codeine 30 mg 1 tab PO Q6H PRN pain 5 days #20 09/23/23 tablet tabs clindamycin HCl 300 mg capsule 300 mg PO Q6H 10 days #40 caps 09/23/23 ibuprofen 800 mg tablet 800 mg PO Q8H PRN pain #20 tabs 09/23/23 Allergies Allergy/AdvReac Type Severity Reaction Status Date / Time cephalexin Allergy Severe Difficulty Verified 09/23/23 11:40 Breathing Opioid HPI Opioid Management Most Recent Opioid Data: Last Pain Scale 8 08/21/23 12:43 Review of Systems ROS Narrative A ten point review of systems is negative except as noted above. PFSH PFSH Social History Smoking status: Heavy tobacco smoker Exam Narrative Exam Narrative: Nurses note and vital signs reviewed and patient is not hypoxic. General: The patient appears well and in no apparent distress. Patient is resting comfortably on cart. Skin: Warm, dry, no pallor noted. There is no rash noted. Head: Normocephalic, atraumatic Eye: Normal conjunctiva, no drainage Ears, Nose, Mouth, and Throat: oral mucosa is moist. Nares patent. Significant dental caries present in the left lower jaw. No gingival swelling or erythema. No swelling to the floor of his mouth. He says handling his oral secretions well. No facial swelling or erythema. Both TMs and both external canals are normal. Cardiovascular: Regular Rate and Rhythm Respiratory: Patient is in no distress, no accessory muscle use, lungs are clear to auscultation, no wheezing, rales or rhonchi Back: non-tender GI: Soft and nontender Musculoskeletal: No joint swelling Neurological: A&O, normal speech Psychiatric: Cooperative Constitutional Vital Signs, click to edit/add: Last Vital Signs Temp 98.4 F 09/23/23 11:40 Pulse 72 09/23/23 11:40 Resp 14 09/23/23 11:40 BP 132/77 09/23/23 11:40 Pulse Ox 98 09/23/23 11:40 O2 Del Method Room Air 09/23/23 11:40 Course Vital Signs Vital signs: Vital Signs Temperature 98.4 F 09/23/23 11:40 Pulse Rate 72 09/23/23 11:40 Respiratory Rate 14 09/23/23 11:40 Blood Pressure 132/77 09/23/23 11:40 Pulse Oximetry 98 09/23/23 11:40 Oxygen Delivery Method Room Air 09/23/23 11:40 Temperature 98.4 F 09/23/23 11:40 Pulse Rate 72 09/23/23 11:40 Respiratory Rate 14 09/23/23 11:40 Blood Pressure 132/77 09/23/23 11:40 Pulse Oximetry 98 09/23/23 11:40 Oxygen Delivery Method Room Air 09/23/23 11:40 Medical Decision Making MDM Narrative Medical decision making narrative: He has a normal ear exam. My impression is that he has referred pain from his dental caries. He is provided prescriptions for clindamycin, Motrin, and Tylenol 3 and will follow-up with his dentist. Treatment diagnosis and follow-up were discussed with the patient. Differential Diagnosis Differential Diagnosis: Otitis media, otitis externa, dental caries Discharge Plan Discharge Stand Alone Forms: Portal Instructions Chief Complaint: Ear Clinical Impression: Dental caries Patient Disposition: Home, Self-Care Time of Disposition Decision: 12:29 Condition: Good Mode of Transportation: Private Vehicle Prescriptions / Home Meds: New clindamycin HCl 300 mg capsule 300 mg PO Q6H 10 Days Qty: 40 0RF acetaminophen-codeine 300-30 mg tablet 1 tab PO Q6H PRN (Reason: pain) 5 Days Qty: 20 0RF ibuprofen 800 mg tablet 800 mg PO Q8H PRN (Reason: pain) Qty: 20 0RF No Action clindamycin HCl 150 mg capsule 300 mg PO Q8H Print Language: Kinyarwanda Instructions: Toothache (ED) Referrals: Physician,Non-Staff, MD [Primary Care Provider] - 1 week
== END 2023-09-23 12:44 | disposition home or self-care (01) ==
PROVIDERS: Emergency Provider Emergency Medicine
DX: K02.9 Dental caries, unspecified (principal); F17.200 Nicotine dependence, unspecified, uncomplicated
CPT/HCPCS: 99283

== ENCOUNTER 2024-02-12 16:03 | Emergency (ER) | payer SELFPAY ==
[2024-02-12 16:07] VITALS: BP 111/63; PULSE 67; TEMP 37; O2SAT 97; BMI 25.0
--- NOTE | 2024-02-12 16:14 | XR_ITS ---
The [address] [address] Patient Name: ROSETTE JACINTO MRN: [id number] date: 2000 Sex: M Assigned Patient Location: ER Current Patient Location: Accession/Order Number: [id number] Exam Date: 02/12/2024 16:19 Report Date: 02/12/2024 17:23 At the request of: EMILY CORNEJO Procedure: XR knee RT 3V EXAM: XR Right Knee, 3 Views CLINICAL INDICATION: fall TECHNIQUE: Three views of the right knee. COMPARISON: No relevant prior studies available. FINDINGS: BONES/JOINTS: Unremarkable. No acute fracture. No dislocation. SOFT TISSUES: Soft tissue swelling. XR/XR knee RT 3V IMPRESSION: No acute fracture. Soft tissue swelling Electronically authenticated by: YAIR BUENO Date: 02/12/2024 17:23
--- NOTE | 2024-02-12 16:15 | ED.LOWEXI1 ---
HPI HPI - Extremity Injury (Lower) General Chief Complaint: Extremity Injury, Lower Stated Complaint: FALL Time Seen by Provider: 02/12/24 16:10 Source: patient Mode of arrival: walk-in History of Present Illness HPI Narrative: Patient is a 23-year-old male who presents to the emergency department for pain in the anterior/inferior right knee after falling on a stair. Patient states he fell early this morning. He is able to ambulate. He complains of pain at the area of a small scab over the patellar ligament. He had no other associated injuries. No medications taken prior to arrival. Related Data Home Medications ?Medication ?Instructions ?Recorded ?Confirmed No Known Home Medications 02/12/24 02/12/24 Previous Rx's ?Medication ?Instructions ?Recorded ketorolac 10 mg tablet 10 mg PO TID PRN pain #10 tabs 02/12/24 Allergies Allergy/AdvReac Type Severity Reaction Status Date / Time cephalexin Allergy Severe Difficulty Verified 09/23/23 11:40 Breathing Opioid HPI Opioid Management Most Recent Pain and Opioid Data: Last Pain Scale 7 02/12/24 16:13 02/12/24 Review of Systems ROS Constitutional Denies: fever or chills Ears, nose, mouth, and throat Denies: throat pain or nasal congestion Cardiovascular Denies: chest pain Respiratory Denies: shortness of breath Gastrointestinal Denies: nausea or vomiting Musculoskeletal Reports: extremity pain and joint pain; Denies: back pain, neck pain, extremity swelling, limited range of motion or joint swelling Integumentary/Breast Denies: rash Neurological Denies: numbness in extremities or weakness in extremities Hematologic/Lymphatic Denies: easy bruising or easy bleeding PFSH PFSH Social History Smoking status: Heavy tobacco smoker Little interest or pleasure in doing things: not at all Feeling down, depressed, or hopeless: not at all Exam Narrative Exam Narrative: Gen.: Awake, alert, in no distress Head: Normocephalic, atraumatic ENT: Moist mucous membranes Respiratory: No respiratory distress Extremities: Diffuse mild tenderness of the proximal tibia just inferior to the patellar ligament. There is no joint effusion, laxity of the patella or obvious deformity. No bony tenderness over the patellar right posterior knee. There is a well-healing, at least several day old appearing scab to the area. No bony tenderness of the right ankle. Psych: Normal mood and affect Neuro: No focal neuro deficit Skin: Warm, dry, intact Constitutional Vital Signs, click to edit/add: Last Vital Signs Temp 98.6 F 02/12/24 16:07 Pulse 67 02/12/24 16:07 Resp 18 02/12/24 16:07 BP 111/63 02/12/24 16:07 Pulse Ox 97 02/12/24 16:07 O2 Del Method Room Air 02/12/24 16:07 Course Vital Signs Vital signs: Vital Signs Temperature 98.6 F 02/12/24 16:07 Pulse Rate 67 02/12/24 16:07 Respiratory Rate 18 02/12/24 16:07 Blood Pressure 111/63 02/12/24 16:07 Pulse Oximetry 97 02/12/24 16:07 Oxygen Delivery Method Room Air 02/12/24 16:07 Temperature 98.6 F 02/12/24 16:07 Pulse Rate 67 02/12/24 16:07 Respiratory Rate 18 02/12/24 16:07 Blood Pressure 111/63 02/12/24 16:07 Pulse Oximetry 97 02/12/24 16:07 Oxygen Delivery Method Room Air 02/12/24 16:07 MDM - Extremity Injury (Lower) MDM Narrative Medical decision making narrative: Patient states that he sustained his injury today and states that the scab on his right anterior knee happened this morning as well, however the scab appears at least several days old and in process of healing. X-rays of the knee show no evidence of fracture or dislocation. Patient placed in an Sudhakar wrap and remains neurovascularly intact. NSAIDs given for home. Rest, ice, elevate. He is neurovascularly intact at discharge. Return to the ER if symptoms change or worsen SHARED APC VISIT, PHYSICIAN ATTESTATION: [id number] I performed a substantive part of the MDM during the patient?s E/M visit. I personally evaluated and examined the patient. I personally made or approved the documented management plan and acknowledge its risk of complications. Medical Records Attestation: I reviewed the patient's medical records. Imaging Data XR knee: Attestation: I have reviewed the pertinent imaging results. Discharge Plan Discharge Chief Complaint: Extremity Injury, Lower Clinical Impression: Contusion of right knee Patient Disposition: Home, Self-Care Time of Disposition Decision: 16:59 Condition: Good Prescriptions / Home Meds: New ketorolac 10 mg tablet 10 mg PO TID PRN (Reason: pain) Qty: 10 0RF No Action No Known Home Medications Print Language: Upper Sorbian Instructions: Contusion in Adults (ED) Referrals: Physician,Non-Staff, MD [Primary Care Provider] - 1 week
--- OUTSIDE RECORDS SUMMARY | 2024-02-12 16:27 | XMS_ITS | CCD ---
Author Organization [facility] Care Team Providers Care Medical Records Receptionist Name Role Phone CURLY ., ELIZABETH Admitting [...] Primary Care Unavailable DIANA HERNANDEZ Attending Unavailjeanine e NO PCP, NO PCP Primary Care Unavailable BARBARA ZUNIGA Attending Unavailable Unavailable Unavailable Unavailable Allergies Allergy Classification Reported Allergen(s) Allergy Type Date of Onset Reaction(s) Facility (3 sources) Cephalexin; Translations: [Cephalexin] Drug Allergy 5 Difficulty Breathing [facility] Medications Current Medications Medication Drug [...] heart] Episodic Disorders of teeth and jaw (5 sources) Toothache; Translations: [Periapical abscess without sinus] Onset: 09-17-2023 Episodic Fluid and electrolyte disorders (1 source) Hypokalemia; Translations: [Diuretic-induced hypokalemia] Episodic Headache; including migraine (1 source) Headache; Translations: [Daily headache] Episodic Nausea and vomiting (2 sources) Nausea and vomiting; Translations: [Vomiting] Episodic Pneumonia (except that caused by tuberculosis or sexually transmitted disease) (1 source) Pneumonia; Translations: [Drug-induced pneumonitis] Episodic Substance-related disorders (2 sources) Cannabis abuse; [...] unspecified] Onset: 11-16-2021 Episodic Other upper respiratory disease (1 source) Pain in throat Onset: 09-20-2023 Episodic Other upper respiratory infections (4 sources) Pharyngitis; Translations: [Upper respiratory infection] Onset: 11-17-2021 Episodic Spondylosis; intervertebral disc disorders; other back problems (6 sources) Dorsalgia, unspecified; Translations: [Backache] Onset: 05-22-2022 Episodic Sprains and strains (2 sources) Thoracic back sprain; Translations: [Strain of muscle, fascia and tendon of lower back, initial encounter] Onset: 08-30-2023 Episodic Results Test Name Value Interpretation Reference Range Facil ity STREP PCR THROATon S. pyogenes DNA ANDIE+probe Nom (Unsp spec) STREP PCR THROAT Negative (qualifier value) Streptococcus Group A NOT detected by nucleic acid amplification. Normal [facility] Comment on above: Performed By: #### 4 [id number] #### [facility] ([id number]) [address] [place] [address], [address] [place] [address] RAPID STREP SCR NURSINGon S. pyogenes Ag EIA Ql (Throat) Negative Normal NEG [facility] Comment on above: Performed By: #### 6 [id number] #### [facility] ([id number]) [address] [place] [address] XR SPINE LUMBAR 2 OR 3 VWSon [...] Toro MD on 09/04/2023 10:33 PM Normal [facility] URN MACROSCOPIC NURon 2023 BILIRUBIN PEDRO Negative Normal [facility] Comment on above: Performed By: #### N UM #### [facility] ([id number]) [address] [place] [address] BLOOD/HGB PEDRO Negative Normal [facility] Comment on above: Performed By: #### N UM #### [facility] ([id number]) [address] [place] [address] GLUCOSE PEDRO Negative Normal [facility] Comment on above: Performed By: #### N UM #### [facility] ([id number]) [address] [place] [address] KETONES PEDRO Negative Normal NEG [facility] Comment on above: Performed By: #### N UM #### [facility] ([id number]) [address] [place] [address] LEUKOCYTE ESTERASE PEDRO Negative Normal [facility] Comment on above: Performed By: #### N UM #### [facility] ([id number]) [address] [place] [address] NITRITE PEDRO Negative Normal NEG [facility] Comment on above: Performed By: #### N UM #### [facility] ([id number]) [address] [place] [address] PH PEDRO 7.0 Normal 5.0-8.5 [facility] Comment on above: Performed By: #### N UM #### [facility] ([id number]) [address] [place] [address] PROTEIN PEDRO Negative Normal NEG [facility] Comment on above: Performed By: #### N UM #### [facility] ([id number]) [address] [place] [address] SPECIFIC GRAVITY PEDRO 1.020 Normal 1.003-1.035 [facility] Comment on above: Performed By: #### N UM #### [facility] ([id number]) [address] [place] [address] UROBILINOGEN PEDRO 0.2 eu/dL Normal <1.1 [facility] Comment on above: Performed By: #### N UM #### [facility] ([id number]) [address] [place] [address] XR CHEST 2 Von 11-16-2021 XR CHEST [...] by: ADRIANA CORTEZ Date: 2021-11-16 13:05 Normal [facility] Encounters Encounter Date Encounter Type Care Provider Facility Start: 02-02-2024 End: 02-02-2024 Emergency department patient visit NO PCP NO PCP [facility] Start: 09-20-2023 End: 09-20-2023 Emergency department patient visit NO PCP NO PCP [facility] Start: 09-17-2023 End: 09-17-2023 Emergency department patient visit NO PCP NO PCP [facility] Start: 09-04-2023 End: 09-05-2023 Emergency department patient visit DOTTIE CALVERT [facility] Start: 08-30-2023 End: 08-30-2023 Emergency department patient visit NO PCP NO PCP [facility] Start: 05-22-2022 End: 05-22-2022 ambulatory KELLEN LAMBERT . Facility: Start: 11-16-2021 End: 11-16-2021 ambulatory ELIZABETH CURLY . Facility: Payers Date Payer Category Payer Unknown [id number] [id number] [id number] 2000 Unknown [id number] [id number] [id number] 1961 Private Health Insurance [id number] 1961 Self-pay [id number] Unknown Self Pay [id number] Unknown Self Pay [id number] Social History Date Type [facility]ail [facility] Start: 2000 Sex Assigned At Male F [facility] Goals Date Patient Goal Desired Activity [...] pital DATE CREATED AUTHOR AUTHOR'S ORGANIZ ATION 02/04/2024 [facility] FOR RECORDS PERTAINING TO PATIENTS WHO ARE [...] BE BASED ON THE PRIMARY CLINICAL RECORDS. [facility] [employer] [facility]. provides no warranty or guarantee of the accuracy or completeness of information in this document.
[2024-02-12] MEDS: KETOROLAC TROMETHAMINE 10 MG TABLET PO (16:31)
== END 2024-02-12 17:17 | disposition home or self-care (01) ==
PROVIDERS: Emergency Provider Emergency Medicine
DX: S80.01XA Contusion of right knee, initial encounter (principal); F17.200 Nicotine dependence, unspecified, uncomplicated; W10.8XXA Fall (on) (from) other stairs and steps, initial encounter
CPT/HCPCS: 73562; 99284

== ENCOUNTER 2024-05-06 12:31 | Emergency (ER) | payer SELFPAY ==
[2024-05-06 12:40] VITALS: BP 115/68; PULSE 49; TEMP 36.4; O2SAT 99; BMI 26.6
--- OUTSIDE RECORDS SUMMARY | 2024-05-06 12:43 | XMS_ITS | CCD ---
Author Organization [facility] Care Team Providers Care Digital Analyst Name Role Phone CURLY ., ELIZABETH Admitting Unavailable CURLY ., ELIZABETH Attending Unavailable DR ADRIANA CORTEZ Consulting Unavailable REQUEST, NONE LISTED Primary Care Unavaila ble CURLY ., ELIZABETH Consulting Unavailable PETRA ., KELLEN Admitting Unavailable PETRA ., KELLEN Consulting Unavailable PETRA ., KELLEN Attending Unavailable REQUEST, NONE LISTED Primary Care Unavaila ble NO PCP, NO PCP Primary Care Unavailable DIANA HERNANDEZ Attending Unavailabl e NO PCP, NO PCP Primary Care Unavailable NO PCP, NO PCP Primary Care Unavailable JONO DUMONT Attending Unavailable NO PCP, NO PCP Primary Care Unavailable BARBARA ZUNIGA Attending Unavailable NO PCP, NO PCP Primary Care Unavailable BARBARA CHURCH Attending Unavailable DOTTIE CALVERT Attending Unavailable NO PCP, [...] [Cephalexin] Drug Allergy 5 Difficulty Breathing [facility] Medications Current Medications Medication Drug [...] teeth and jaw (5 sources) Toothache; Translations: [Other specified disorders of teeth and supporting structures] Onset: 09-17-2023 Episodic Fluid and electrolyte disorders [...] of thumb; Translations: [Contusion of thumb] Episodic Unclassified (1 source) Cold Like Symptoms Onset: 04-24-2024 Viral infection (2 sources) Acute viral disease; Translations: [Viral disease] Episodic Viral infection (1 source) COVID-19; Translations: [COVID-19] Onset: 04-24-2024 Past or Other Problems Problem Classification Problem Date Documented Da te Episodic/Chronic Nonspecific chest pain (4 sources) Other chest pain; Translations: [Chest pain, unspecified] Onset: 11-16-2021 Episodic Other upper respiratory disease (2 sources) Pain in throat Onset: 09-20-2023 Episodic Other upper respiratory infections (4 sources) Pharyngitis; Translations: [Upper respiratory infection] Onset: 11-17-2021 Episodic Spondylosis; intervertebral disc disorders; other back problems (5 sources) Dorsalgia, unspecified; Translations: [Backache] Onset: 05-22-2022 Episodic Sprains and strains (2 sources) Thoracic back sprain; Translations: [Strain of muscle, fascia and tendon of lower back, initial encounter] Onset: 09-04-2023 Episodic Results Test Name Value Interpretation Reference Range Facil ity CBC AND AUTO DIFFon 04-24-19 ABSOLUTE BASOPHIL 0.0 X10E9/L Normal 0.0-0.2 [facility] Comment on above: Performed By: #### C ZOË MALLORY, 3 #### [facility] ([id number]) [address] [place] [address] 37073 ABSOLUTE NEUTROPHIL 1.5 X10E9/L Normal 1.5-6.6 [facility] Comment on above: Performed By: #### C ZOË MALLORY, 3 #### [facility] ([id number]) [address] [place] [address] 73793 Basophils/100 WBC (Bld) 0.5 % Normal [facility] Comment on above: Performed By: #### C ZOË MALLORY, 3039-05 #### [facility] ([id number]) [address] [place] [address] 01874 Eosinophils (Bld) [#/Vol] 0.1 10*3/uL Normal 0.0-0.4 [facility] Comment on above: Performed By: #### C ZOË MALLORY, 3039-05 #### [facility] ([id number]) [address] [place] [address] 38155 Eosinophils/100 WBC (Bld) 2.9 % Normal [facility] Comment on above: Performed By: #### Gladys MALLORY CMP, 3 #### [facility] ([id number]) [address] [place] [address] 13149 Erythrocyte distribution width (RBC) [Ratio] 14.2 % Normal 11.5-15.0 [facility] Comment on above: Performed By: #### C SHAWNEE CMP, 3 #### [facility] ([id number]) [address] [place] [address] 86767 Hematocrit (Bld) [Volume fraction] 42.2 % Normal 39-49 [facility] Comment on above: Performed By: #### C SHAWNEE CMP, 3039-05 #### [facility] ([id number]) [address] [place] [address] 15850 Hemoglobin (Bld) [Mass/Vol] 14.0 g/dL Normal 13.0-17.0 [facility] Comment on above: Performed By: #### Gladys MALLORY, CMP, 3039-05 #### [facility] ([id number]) [address] [place] [address] 96180 Lymphocytes (Bld) [#/Vol] 1.3 10*3/uL Normal 1.0-3.5 [facility] Comment on above: Performed By: #### Gladys MALLORY CMP, 3039-05 #### [facility] ([id number]) [address] [place] [address] 48952 Lymphocytes/100 WBC (Bld) 37.7 % Normal [facility] Comment on above: Performed By: #### Gladys MALLORY, CMP, 3039-05 #### [facility] ([id number]) [address] [place] [address] 64621 MCH (RBC) [Entitic mass] 30.0 pg Normal 27-34 [facility] Comment on above: Performed By: #### Gladys MALLORY, CMP, 3039-05 #### [facility] ([id number]) [address] [place] [address] 05032 MCHC (RBC) [Mass/Vol] 33.2 g/dL Normal 32-36 [facility] Comment on above: Performed By: #### Gladys MALLORY, CMP, 3039-05 #### [facility] ([id number]) [address] [place] [address] 22062 MCV (RBC) [Entitic vol] 90 fL Normal 80-100 [facility] Comment on above: Performed By: #### Gladys MALLORY CMP, 3 #### [facility] ([id number]) [address] [place] [address] 09541 Monocytes (Bld) [#/Vol] 0.7 10*3/uL Normal 0-0.9 [facility] Comment on above: Performed By: #### Gladys MALLORY CMP, 3040-3 #### [facility] ([id number]) [address] [place] [address] 47246 Monocytes/100 WBC (Bld) 18.2 % Normal [facility] Comment on above: Performed By: #### Gladys MALLORY CMP, 3039-3 #### [facility] ([id number]) [address] [place] [address] 70972 Neutrophils/100 WBC (Bld) 40.7 % Normal [facility] Comment on above: Performed By: #### Gladys MALLORY CMP, 3039-3 #### [facility] ([id number]) [address] [place] [address] [place] [address] Platelet mean volume (Bld) [Entitic vol] 7.7 fL Normal 7-12 [facility] Comment on above: Performed By: #### Gladys MALLORY CMP, 3039-3 #### [facility] ([id number]) [address] [place] [address] 21516 Platelets (Bld) [#/Vol] 227 10*3/uL Normal 150-450 [facility] Comment on above: Performed By: #### Gladys MALLORY CMP, 3039-3 #### [facility] ([id number]) [address] [place] [address] 09950 RBC COUNT 4.67 X10E12/L Normal 4.10-5.70 [facility] Comment on above: Performed By: #### Gladys MALLORY CMP, 0-3 #### [facility] ([id number]) [address] [place] [address] 12000 WBC (Bld) [#/Vol] 3.6 10*3/uL Low 4.0-11.0 [facility] Comment on above: Performed By: #### C SHAWNEE [facility], 3039-3 #### [facility] ([id number]) [address] [place] [address] 78188 COMPREHENSIVE METABOLIC PANE Kermit 04-24-2024 Albumin [Mass/Vol] 4.6 g/dL Normal 3.2-5.3 [facility] Comment on above: Performed By: #### C SHAWNEE, [facility], 3039-3 #### [facility] ([id number]) [address] [place] [address] 67322 ALP [Catalytic activity/Vol] 47 U/L Normal 39-130 [facility] Comment on above: Performed By: #### C SHAWN[place] [facility], 3 #### [facility] ([id number]) [address] [place] [address] 24682 ALT [Catalytic activity/Vol] 23 U/L Normal 0-40 [facility] Comment on above: Performed By: #### C SHAWNEE [facility], 3039-3 #### [facility] ([id number]) [address] [place] [address] 00480 Anion gap [Moles/Vol] 8 mmol/L Normal 5-15 [facility] Comment on above: Performed By: #### C SHAW[place] [facility], 3039-3 #### [facility] ([id number]) [address] [place] [address] 24604 AST [Catalytic activity/Vol] 25 U/L Normal 0-41 [facility] Comment on above: Performed By: #### C BCA CMP, 3039-3 #### [facility] ([id number]) [address] [place] [address] 04306 Bilirubin [Mass/Vol] 1.1 mg/dL Normal 0.3-1.2 [facility] Comment on above: Performed By: #### C ZOË MALLORY, 3039-3 #### [facility] ([id number]) [address] [place] [address] 24196 Calcium [Mass/Vol] 8.8 mg/dL Normal 8.5-10.5 [facility] Comment on above: Performed By: #### C ZOË MALLORY, 3039-3 #### [facility] ([id number]) [address] [place] [address] 53285 Chloride [Moles/Vol] 104 mmol/L Normal 98-109 [facility] Comment on above: Performed By: #### C ZOË MALLORY, 3 #### [facility] ([id number]) [address] [place] [address] 10435 CO2 [Moles/Vol] 25 mmol/L Normal 22-32 [facility] Comment on above: Performed By: #### Gladys MALLORY CMP, 3 #### [facility] ([id number]) [address] [place] [address] 07663 Creatinine [Mass/Vol] 1.01 mg/dL Normal 0.70-1.20 [facility] Comment on above: Result Comment: METH OD TRACEABLE TO IDMS STANDARD Performed By: #### C ZOË MALLORY, 3 #### [facility] ([id number]) [address] [place] [address] 59325 eGFR (CKD-EPI) NON-RACE DEPENDENT >90 Normal >59 [facility] Comment on above: Result Comment: Reported eGFR is based on the CKD-EPI 2020 equation that does not use a race coefficient. Performed By: #### Gladys MALLORY CMP, 3039-3 #### [facility] ([id number]) [address] [place] [address] 50498 Glucose [Mass/Vol] 106 mg/dL High 65-99 [facility] Comment on above: Performed By: #### C ZOË MALLORY, 3040-3 #### [facility] ([id number]) [address] [place] [address] 26712 Potassium [Moles/Vol] 3.3 mmol/L Low 3.5-5.0 [facility] Comment on above: Performed By: #### Gladys MALLORY CMP, 3039-3 #### [facility] ([id number]) [address] [place] [address] 64742 Protein [Mass/Vol] 7.6 g/dL Normal 6.0-8.0 [facility] Comment on above: Performed By: #### Gladys MALLORY CMP, 3039-3 #### [facility] ([id number]) [address] [place] [address] 63780 Sodium [Moles/Vol] 137 mmol/L Normal 134-146 [facility] Comment on above: Performed By: #### Gladys MALLORY CMP, 3039-3 #### [facility] ([id number]) [address] [place] [address] 44214 Urea nitrogen [Mass/Vol] 10 mg/dL Normal 5-23 [facility] Comment on above: Performed By: #### Gladys MALLORY CMP, 3039-3 #### [facility] ([id number]) [address] [place] [address] 53552 LIPASEon 04-24-2024 Lipase [Catalytic activity/Vol] 36 U/L Normal 17-40 [facility] Comment on above: Performed By: #### Gladys MALLORY CMP, 3039-3 #### [facility] ([id number]) [address] [place] [address] 82738 SARS/FLU A+B/RSV by NAAT/Mol ecularon 04-24-2024 SARS/FLU A+B/RSV by NAAT/Molecular FLU A PCR Negative (qualifier value) FLU B PCR Negative (qualifier value) RSV by PCR Negative (qualifier value) SARS CoV 2 Detected (qualifier value) NOTE The Xpert Xpress SARS-CoV-2/Flu/RSV Plus test is a rapid, multiplexed real-time RT-PCR test intended for the simultaneous qualitative detection and differentiation of SARS-CoV-2, influenza A, influenza B and respiratory syncytial virus (RSV) viral RNA from individuals suspected of respiratory viral infection consistent with COVID-19 by their healthcare provider. This test has not been validated in asymptomatic patients. The Xpert Xpress SARS-CoV-2 test is intended for use by qualified and trained operators who are performing tests using either [employer] or [employer] systems and is limited to laboratories that meet the CLIA requirements to perform high and moderate complexity tests. The Xpert Xpress SARS-CoV-2/Flu/RSV Plus is only for use under the Food and Drug Administration's Emergency Use Authorization. Results are for the simultaneous detection and differentiation of SARS-CoV-2, influenza A, influenza B and RSV nucleic acids in clinical specimens. SARS-CoV-2, influenza A, influenza B and RSV RNA identified by this test are generally detectable in upper respiratory samples during the acute phase of infection. Positive results are indicative of the presence of the identified virus, but do not rule out bacterial infection or co-infection with other pathogens not detected by this test. Clinical correlation with patient history and other diagnostic information is necessary to determine patient infection status. The agent detected may not be the definite cause of disease. Negative results do not preclude SARS-CoV-2, influenza A, influenza B and RSV infection and should not be used as the sole basis for treatment or other patient management decisions. Negative results must be combined with clinical observations, patient history and epidemiological information. An Invalid result may occur with specimen-associated inhibition unable to be resolved with specimen repeat. Fact Sheet for Healthcare Providers: https://www.fda.gov/m edia/395263/download Fact Sheet for Patients: https://www.fda.gov/m edia/881722/download Normal [facility] Comment on above: Performed By: #### C OVFLR #### [facility] ([id number]) [address] [place] [address], [place] [address] STREP PCR THROATon 4 S. pyogenes DNA ANDIE+probe Nom (Unsp spec) STREP PCR THROAT Negative (qualifier value) Streptococcus Group A NOT detected by nucleic acid amplification. Normal [facility] Comment on above: Performed By: #### 4 9610-9 #### [facility] ([id number]) [address] [place] [address] RAPID STREP SCR NURSINGon S. pyogenes Ag EIA Ql (Throat) Negative Normal NEG [facility] Comment on above: Performed By: #### 6 556-5 #### [facility] ([id number]) [address] [place] [address] 21618 XR SPINE LUMBAR 2 OR 3 VWSon [...] Toro MD on 09/04/2023 10:33 PM Normal [facility] URN MACROSCOPIC NURon 2023 BILIRUBIN PEDRO Negative Normal [facility] Comment on above: Performed By: #### N UM #### [facility] ([id number]) [address] [place] [address] 02018 BLOOD/HGB PEDRO Negative Normal NEG [facility] Comment on above: Performed By: #### N UM #### [facility] ([id number]) [address] [place] [address] 33092 GLUCOSE PEDRO Negative Normal NEG [facility] Comment on above: Performed By: #### N UM #### [facility] ([id number]) [address] [place] [address] 41956 KETONES PEDRO Negative Normal [facility] Comment on above: Performed By: #### N UM #### [facility] ([id number]) [address] [place] [address] 60041 LEUKOCYTE ESTERASE PEDRO Negative Normal NEG [facility] Comment on above: Performed By: #### N UM #### [facility] ([id number]) [address] [place] [address] 69998 NITRITE PEDRO Negative Normal NEG [facility] Comment on above: Performed By: #### N UM #### [facility] ([id number]) [address] [place] [address] 86995 PH PEDRO 7.0 Normal 5.0-8.5 [facility] Comment on above: Performed By: #### N UM #### [facility] ([id number]) [address] [place] [address] 42508 PROTEIN PEDRO Negative Normal NEG [facility] Comment on above: Performed By: #### N UM #### [facility] ([id number]) [address] [place] [address] 56145 SPECIFIC GRAVITY PEDRO 1.020 Normal 1.003-1.035 [facility] Comment on above: Performed By: #### N UM #### [facility] ([id number]) [address] [place] [address] 59580 UROBILINOGEN PEDRO 0.2 eu/dL Normal <1.1 [facility] Comment on above: Performed By: #### N UM #### [facility] ([id number]) [address] [place] [address] 10465 XR CHEST 2 Von 11-16-2021 XR CHEST [...] by: ADRIANA CORTEZ Date: 2021-11-16 13:05 Normal [facility] Encounters Encounter Date Encounter Type Care Provider Facility Start: 04-24-2024 End: 04-24-2024 Emergency department patient visit NO PCP NO PCP [facility] Start: 04-22-2024 End: 04-22-2024 Emergency department patient visit NO PCP NO PCP [facility] Start: 02-02-2024 End: 02-02-2024 Emergency department patient visit NO PCP NO PCP [facility] Start: 09-20-2023 End: 09-20-2023 Emergency department patient visit NO PCP NO PCP [facility] Start: 09-17-2023 End: 09-17-2023 Emergency department patient visit NO PCP NO PCP [facility] Start: 09-04-2023 End: 09-05-2023 Emergency department patient visit DOTTIE Christensen ENRIKE [facility] Start: 08-30-2023 End: 08-30-2023 Emergency department patient visit DOTTIE Fermin ENRIKE [facility] Start: 05-22-2022 End: 05-22-2022 ambulatory KELLEN LAMBERT . Facility: Start: 11-16-2021 End: 11-16-2021 ambulatory ELIZABETH RAWLS . Facility: Payers Date Payer Category Payer Unknown [id number] 2.16.84 [id number] 1998 Unknown [id number] 2.16.84 [id number] 1961 Private Health Insurance [id number] 1961 Self-pay [id number] Unknown Self Pay [id number] Unknown Self Pay [id number] Social History Date Type [facility]ail [facility] Start: 2000 Sex Assigned At Male F [facility] Goals Date Patient Goal Desired Activity [...] and content) DATE CREATED AUTHOR 05/24/2022 [facility] DATE CREATED AUTHOR AUTHOR'S ORGANIZ ATION 04/24/[address] [facility] FOR RECORDS PERTAINING TO PATIENTS WHO [...] BE BASED ON THE PRIMARY CLINICAL RECORDS. [employer] [facility]. provides no warranty or guarantee of the accuracy or completeness of information in this document.
--- NOTE | 2024-05-06 13:41 | ED_ITS ---
HPI - Dental/Oral General Chief complaint: Dental/Oral Stated complaint: DENTAL PAIN Time Seen by Provider: 05/06/24 13:33 Source: patient Mode of arrival: walk-in Limitations: no limitations History of Present Illness HPI Narrative: 23-year-old male presents to the emergency department with complaint of facial swelling, concern for dental infection. Notes broken tooth to his left lower jaw over the past couple months. Pain and swelling did not begin until yesterday with progressive worsening. Notes associated tenderness. Denies any fever, difficulty swallowing, opening his mouth. Quality:?As above Severity:?Mild Timing:?As above, worsening Context: Normal setting and activity? Modifying factors:?Pain worse with palpation Associated symptoms: Facial swelling Related Data Home Medications ?Medication ?Instructions ?Recorded ?Confirmed No Known Home Medications 02/12/24 02/12/24 Previous Rx's ?Medication ?Instructions ?Recorded ketorolac 10 mg tablet 10 mg PO TID PRN pain #10 tabs 02/12/24 clindamycin HCl 300 mg capsule 300 mg PO Q6H 10 days #40 caps 05/06/24 Allergies Allergy/AdvReac Type Severity Reaction Status Date / Time cephalexin Allergy Severe Difficulty Verified 05/06/24 12:39 Breathing Review of Systems ROS Narrative CONST: Denies fever, chills HENT: +dental problem, facial swelling.? Denies congestion, ear pain, mouth sores, rhinorrhea EYES: Denies eye discharge, eye pain SKIN: Denies color change PFSH PFSH Social History Smoking status: Heavy tobacco smoker Little interest or pleasure in doing things: not at all Feeling down, depressed, or hopeless: not at all Exam Narrative Exam Narrative: Vital signs noted Nurses notes reviewed CONST: Nontoxic, well appearing, well nourished, in no distress.? No diaphoresis.?? HENT: normocephalic, atraumatic.? Normal hearing.? Normal appearing ext ears, canals, TM's.? No nasal discharge.? MOUTH/THROAT: + caries throughout of varying levels.? Teeth along the left lower jaw are tender with adjacent, mild facial swelling.? No fluctuance.? No palpable abscess, trismus.? Patient maintaining own secretions.? Moist mucous membranes, no increased oropharyngeal erythema, edema, exudate.? No submandibular or submental tenderness.? No tenderness or elevation of the roof of the mouth. EYES: clear, no injections, discharge NECK: supple, no lymphadenopathy NEURO: A&Ox3 SKIN: warm, dry PSYCHIATRIC: normal mood and affect Constitutional Vital Signs, click to edit/add: Last Vital Signs Temp 97.6 F 05/06/24 12:40 Pulse 49 L 05/06/24 12:40 Resp 16 05/06/24 12:40 BP 115/68 05/06/24 12:40 Pulse Ox 99 05/06/24 12:40 Course Vital Signs Vital signs: Vital Signs Temperature 97.6 F 05/06/24 12:40 Pulse Rate 49 L 05/06/24 12:40 Respiratory Rate 16 05/06/24 12:40 Blood Pressure 115/68 05/06/24 12:40 Pulse Oximetry 99 05/06/24 12:40 Temperature 97.6 F 05/06/24 12:40 Pulse Rate 49 L 05/06/24 12:40 Respiratory Rate 16 05/06/24 12:40 Blood Pressure 115/68 05/06/24 12:40 Pulse Oximetry 99 05/06/24 12:40 MDM - Dental/Oral MDM Narrative Medical decision making narrative: This is a pleasant 23-year-old male who presents to the emergency department for evaluation of dental pain, facial swelling On arrival, afebrile, vital signs are stable Exam, nontoxic, well-appearing patient in no distress. He has mild swelling, tenderness to the anterior lower mandible, just left of midline. He has severe dental disease, caries throughout. No palpable abscess, trismus, submental or submandibular tenderness. Patient maintaining own secretions Favor odontalgia, dental infection Abscess, Ludewig's angina less likely based on exam History and Record Review Additional records reviewed: No prior records Diagnostic testing considered but not performed: CT scan. No trismus. Airway clear. Disposition ? The patient was discharged. Prescriptions sent to pharmacy: Clindamycin. He was given HurriCaine dental anesthetic in the emergency department.Plan: Patient will be discharged to home.? Condition at time of disposition: stable .? Advised to follow up with referral provider, name and number placed on discharge paperwork. Advised to return for any worsening and/or development of new, concerning signs or symptoms PLEASE NOTE: Portions of the medical record may have been produced using electronic steam table associate and may contain errors with respect to translation of words which may not have been identified prior to finalization of the chart. Medical Records Attestation: I reviewed the patient's medical records. Discharge Plan Discharge Stand Alone Forms: Work/School Release Chief Complaint: Dental/Oral Clinical Impression: Odontalgia, Dental infection Patient Disposition: Home, Self-Care Time of Disposition Decision: 13:49 Condition: Good Mode of Transportation: Private Vehicle Prescriptions / Home Meds: New clindamycin HCl 300 mg capsule 300 mg PO Q6H 10 Days Qty: 40 0RF No Action No Known Home Medications ketorolac 10 mg tablet 10 mg PO TID PRN (Reason: pain) Qty: 10 0RF Print Language: Urdu Instructions: Toothache (ED) Additional Instructions: TOOTHACHE: Your exam shows that your toothache is probably due to tooth decay and infection. Poor dental care is the main cause of this problem. Swelling and redness around a painful tooth often means you have a dental abscess. Pain medicine and antibiotics can help reduce symptoms, but you will need to see a dentist within the next few days to have your problem properly treated. Fillings or root canal work may be needed to save your tooth. If the problem is severe, your tooth may need to be pulled. Please return here right away if you have a fever over 101F, can't swallow, or develop severe swelling. DENTAL CARE SERVICES Here are low cost places you can for dental care. [facility] [address] [address], [place] Extractions ? call for appt (one tooth per patient) [facility] ? [facility] ([facility]) only [address]) Services: Cleanings only! (includes xrays, fluoride tx, oral exam) Hours: Sunday ? Sunday at 9:00am Fee: Adults - $10.00 Children ? 12 or under $6.00 [facility] ? Dental [facility] By main entrance of [facility] (off of [address]) Services: Full service dental care. Call for appt. Fee: Flat fee, Medicaid, and insurance Hours: 9am-11:30am & 1:00pm-4:00pm ? Sunday ? [place] After Hours Dental Emergencies ? [facility] ? ask for Oral Surgery Resident on-call [facility] [address] [facility] ([facility] Need #, Insurance available, or [facility] # Services: Full service dental care Hours: Sunday ? Sunday at 8:30am-5:00pm. Emergencies at 8:00am, noon to 1:00pm Fee: Sliding scale. Must pay at time of service (juan, check, credit card or money order) or bring current Medicaid card or proof of insurance. Bring photo Identification with address. A dental infection is pain in the teeth, face, or jaw due to disease in the teeth and/or gums. In most cases, this is due to untreated cavities, which penetrate to the pulp (nerve) of the tooth. In many cases, an abscess (infection) forms at root of the tooth. This problem must be treated by a dentist as soon as possible to limit damage and prevent complications. With pain medication, antibiotics, AND prompt care by a dentist, you should have improvement of pain.The actual treatment (root canal, removal of tooth, etc.) will be determined by your dentist. If you get worse or are unable to see a den tist, you should return here. 1. Take any prescribed medications as directed. Antibiotics should be taken until all are gone. 2. Apply ice (wrap in a towel) to the painful area for 20 minutes / hour (while awake) for 1 - 2 days. 3. Rinse your mouth several times a day with warm, slightly salty water. 4. SEE A DENTIST as soon as possible for definitive care. 1. DO NOT fail to get proper dental care. 2. DO NOT stop antibiotics until all gone, or instructed to do so by your dentist. Contact your dentist or doctor, call, or return here if you have any of the following: A) increasing pain or swelling B) fever, chills, nausea, or vomiting C) severe headache D) neck pain or stiff neck E) difficulty swallowing F) difficulty breathing G) neck swelling H ) any other new or unexpected symptoms or problems. Referrals: Physician,Non-Staff, MD [Primary Care Provider] - 1 week
[2024-05-06] MEDS: BENZOCAINE 30 ML, lidocaine HCL 15 ML MM (13:57)
== END 2024-05-06 14:07 | disposition home or self-care (01) ==
PROVIDERS: Emergency Provider Emergency Medicine
DX: K04.7 Periapical abscess without sinus (principal); K08.89 Other specified disorders of teeth and supporting structures; F17.200 Nicotine dependence, unspecified, uncomplicated
CPT/HCPCS: 99283